=== PATIENT | female | born 1995 | race African-American/Black ===

== ENCOUNTER 2018-01-01 23:47 | Emergency (ER) | payer SELFPAY ==
[~2018-01-01] VITALS: Ht 165.1 cm; Wt 54.4 kg
--- NOTE | 2018-01-01 23:50 | NUR ---
Dr. Broussard at bedside for MSE.
--- NOTE | 2018-01-01 23:56 | NUR ---
[employer] at bedside to interview pt.
--- NOTE | 2018-01-02 00:10 | NUR ---
Pt placed on suicide precautions, belongings and clothing in nursing station.
--- NOTE | 2018-01-02 00:10 | NUR ---
Jessica Cummings (security) at bedside to monitor patient.
--- NOTE | 2018-01-02 00:59 | NUR ---
Xray at bedside.
[2018-01-02 01:02] LABS: BASOPHILS # (AUTO) 0.1 K/uL (0.0-8.0); EOSINOPHILS # (AUTO) 0.2 K/uL (0.0-0.7); EOSINOPHILS % (AUTO) 3.1 % (0.0-7.0); HEMATOCRIT 37.2 % (31.2-41.9); HEMOGLOBIN 12.4 g/dL (10.9-14.3); LYMPHOCYTES # (AUTO) 3.1 K/uL (20.0-40.0); LYMPHOCYTES % (AUTO) 45.1 % (20.5-51.5); MEAN CORPUSCULAR HEMOGLOBIN 30.6 uug (24.7-32.8); MEAN CORPUSCULAR HGB CONC 33 g/dL (32.3-35.6); MEAN CORPUSCULAR VOLUME 92.1 fL (75.5-95.3); MONOCYTES # (AUTO) 0.6 K/uL (2.0-10.0); MONOCYTES % (AUTO) 8.2 % (0.0-11.0); NEUTROPHILS % (AUTO) 42.6 % (38.5-71.5); PLATELET COUNT (AUTO) 389 K/uL (179-408); RED BLOOD CELL COUNT(AUTO) 4.04 MIL/uL (3.63-4.92)
[2018-01-02 01:23] LABS: ETHANOL < 3 MG/DL (0-0)
[2018-01-02 01:30] LABS: ACETAMINOPHEN < 2.0 ug/mL (10-30); ALANINE AMINOTRANSFERASE 21 U/L (14-59); ALKALINE PHOSPHATASE 54 U/L (50-136); ASPARTATE AMINOTRANSFERASE 15 U/L (15-37); BILIRUBIN,DIRECT 0.2 mg/dL (0.0-0.2); BILIRUBIN,TOTAL 0.7 mg/dL (0.2-1.0); CARBON DIOXIDE 31 mmol/L (21-32); CHLORIDE 100 mmol/L (98-107); CREATININE 0.8 mg/dL (0.6-1.3); GLUCOSE 87 mg/dL (74-106); POTASSIUM 3.9 mmol/L (3.5-5.1); TOTAL PROTEIN, SERUM 8.3 g/dL (6.4-8.2); UREA NITROGEN, BLOOD 8 mg/dL (7-18)
[2018-01-02 01:42] LABS: *BILIRUBIN,URIN NEGATIVE (NEGATIVE); *BLOOD, URINE NEGATIVE (NEGATIVE); *CLARITY,URINE HAZY (CLEAR); *COLOR,URINE YELLOW (YELLOW); *KETONES,URINE TRACE (NEGATIVE); *PROTEIN,URINE NEGATIVE (NEGATIVE); *UROBILINOGEN,URINE 0.2 E.U./dl (NORMAL); LEUKOCYTE ESTERASE ,URINE 1+ (NEGATIVE); NITRITE, URINE NEGATIVE (NEGATIVE); UGLUCOSE NEGATIVE (NEGATIVE)
[2018-01-02 01:48] LABS: RBC,URINE 0-3 /HPF (0-3)
[2018-01-02 01:49] LABS: BACTERIA,URINE FEW /HPF (NONE SEEN); SQUAMOUS EPITHELIAL CELL,UR MANY /HPF (NONE SEEN)
[2018-01-02 01:50] LABS: *AMPHETAMINE, URINE NEGATIVE (NEGATIVE); *BARBITURATE, URINE NEGATIVE (NEGATIVE); *CANNABINOID, URINE POSITIVE (NEGATIVE); *COCCAINE, URINE NEGATIVE (NEGATIVE); *OPIATE, URINE NEGATIVE (NEGATIVE); *PHENCYCLIDINE SCREEN,URINE NEGATIVE (NEGATIVE)
--- NOTE | 2018-01-02 02:09 | NUR ---
Called PET Jim Manning [facility] for pt psych evaluation.
[2018-01-02 02:26] LABS: *URINE HCG, QUAL NEGATIVE (NEGATIVE)
--- NOTE | 2018-01-02 02:38 | NUR ---
Jim Manning LCSW arrived to ER.
--- NOTE | 2018-01-02 02:41 | NUR ---
Jim Luisa [employer] at bedside for psych evaluation.
[2018-01-02] MEDS ORDERED: LEVOFLOXACIN 500 MG TABLET PO ONE (03:15)
[2018-01-02] MEDS ORDERED: LEVOFLOXACIN 500 MG TABLET ONE (03:15)
--- NOTE | 2018-01-02 03:30 | NUR ---
Pt sleeping, no acute signs of distress.
--- NOTE | 2018-01-02 04:30 | NUR ---
Pt sleeping, no acute signs of distress.
--- NOTE | 2018-01-02 05:20 | NUR ---
Pt sleeping in bed, no acute signs of distress.
--- NOTE | 2018-01-02 06:41 | NUR ---
Patient given written and verbal discharge instructions. Patient verbalizes understanding of instructions. Patient is ambulatory with steady gait, no acute signs of distress, VSS, all belongings taken. Patient given list of available shelters in surrounding area by [employer] TECHNICIAN. Patient provided with $2 for transportation to detention.
[2018-01-02 06:45] VITALS: BP 110/80
== END 2018-01-02 06:45 | disposition home or self-care (01) ==
LOC: ER 23:56
DX: Z04.6 Encounter for general psychiatric examination, requested by authority (principal); F32.9 Major depressive disorder, single episode, unspecified; Z59.0 Homelessness
CPT/HCPCS: 36415; 71045; 80048; 80076; 80307; 81001; 84703; 85025; 93005; 99285; A4663; G0480 ×2; G0481